=== PATIENT | male | born 1940 | race Caucasian/White ===

== ENCOUNTER → 2016-12-13 | Outpatient (CLI) | payer OTHER, BC ==
[~2016-12-13] MED LIST: COUMADIN 4 MG TA4 M1 PO; FISH OIL 1,0001 EAC5 PO; GARLIC OIL1 EACH PO; LOPRESSOR 50 MG50 M1 PO; LOPRESSOR PO; NORCO 10-325 T1 EACH PO; PREVACID 30MG C30 M1 PO; SAW PALMETTO C1 EACH PO
== END ==
LOC: RAD 10:58
DX: M47.896 Other spondylosis, lumbar region (principal)